=== PATIENT | female | born 1980 | race Caucasian/White ===

== ENCOUNTER → 2019-01-28 | Outpatient (CLI) | payer BC ==
[~2019-01-28] MED LIST: ALBU90I INH; ALBU90OI INH; BIRTH CONTROL PILL; CALCAVITDA PO; CEPH500 PO; CITA20; CLIN300 PO; CYCL10 PO; DESOGESTREL; DIVA500EC PO; DOC250 PO; ESTR2 PO; ESTROGEN PATCH; ETHINYL ESTRADIOL; FISH1000 PO; HYDACE5 PO; Hair, Skin & N1 EACH PO; LEVFLO500 PO; LIDO2TG30 TOP; LORA1 PO; MULTIVITAMIN; MULVITMIND PO; MULVITMINE; MULVITMINE PO; NITR100CA PO; ORTHOCYCLINE; OXYACE5T PO; PHENA100 PO; PRED20 PO; PROBIOTIC; PSEU120ER PO; Percocet 5-3251 EACH PO; RANI150; RXPHEN200 PO; SERT100; SERT100 PO; SERT50; SERT50 PO; SULTRIDS PO; Zofran8 MG PO; [UNRECOGNIZED DRUG - OTHER]
[2019-01-29 07:02] LABS: Candida species (DNA Probe) Negative (NEGATIVE); G. vaginalis (DNA Probe) Negative (NEGATIVE); T. vaginalis (DNA Probe) Negative (NEGATIVE)
== END | disposition home or self-care (01) ==
LOC: LAB 10:40 → LAB SHORT 10:40
PROVIDERS: Nurse Practitioner Obstetrics & Gynecology
DX: N76.0 Acute vaginitis (principal)
CPT/HCPCS: 87480; 87510; 87660

== ENCOUNTER 2020-08-14 10:01 | Day surgery (SDC) | payer OTHER ==
[~2020-08-14] VITALS: Ht 170.2 cm; Wt 96.7 kg
[~2020-08-14 10:01] MED LIST changes: +FLUT.05NI; +IBUP800 PO; +Methylin ER10 MG PO; +Norco 5-325 Ta1 EACH PO; +PROGESTERONE100 MG PO
[2020-08-14] MEDS ORDERED: FOLIC-K CAPSUL1 EACH (10:24)
--- NOTE | 2020-08-14 10:36 | NUR ---
08/14/20 Mikaela6 Joana Salinas 1 TRY RIGHT HAND BLEW
== END 2020-08-14 11:50 | disposition home or self-care (01) ==
LOC: ORSCSDS 10:01
PROVIDERS: Internal Medicine Gastroenterology
PROC: 0DB98ZX Excision of Duodenum, Via Natural or Artificial Opening Endoscopic, Diagnostic (ICD-10-PCS; principal; 2020-08-14 11:30)
PROC: 0DB68ZX Excision of Stomach, Via Natural or Artificial Opening Endoscopic, Diagnostic (ICD-10-PCS; principal; 2020-08-14 11:30)
DX: R10.11 Right upper quadrant pain (principal); K29.50 Unspecified chronic gastritis without bleeding; K29.80 Duodenitis without bleeding; J45.909 Unspecified asthma, uncomplicated
CPT/HCPCS: 88305; 88342; J2704; J7120

== ENCOUNTER → 2020-11-05 | Outpatient (CLI) | payer OTHER ==
[~2020-11-05] MED LIST changes: +CEFP200 PO; +CITA20 PO; +FOLIC-K CAPSUL1 EACH; +IBU800 MG PO; +Norco 7.5-3251 EACH PO; +ONDA4ODT MM; +SPIR50 PO
[2020-11-06 09:01] LABS: Candida species (DNA Probe) Negative (NEGATIVE); G. vaginalis (DNA Probe) Negative (NEGATIVE); T. vaginalis (DNA Probe) Negative (NEGATIVE)
[2020-11-07 01:11] LABS: HBSAG SCREEN Negative (Negative); HEP B CORE AB, TOT Negative (Negative); HEP C VIRUS AB 0.2 (0.0-0.9)
[2020-11-12 14:10] LABS: PANEL 138901 Negative (Negative)
== END | disposition home or self-care (01) ==
LOC: LAB SHORT 15:12 → PLD 15:12
PROVIDERS: Physician Assistant
DX: Z11.3 Encounter for screening for infections with a predominantly sexual mode of transmission (principal); N76.0 Acute vaginitis
CPT/HCPCS: 86702; 86704; 86708; 86803; 87070; 87205; 87340; 87480; 87510; 87660

== ENCOUNTER → 2020-11-06 | Outpatient (CLI) | payer OTHER ==
[2020-11-08 12:08] LABS: CHLAMYDIA TRACHOMATIS, NAA Negative (Negative)
== END | disposition home or self-care (01) ==
LOC: LAB SHORT 09:50 → LAB EV 09:50
PROVIDERS: Physician Assistant
DX: Z11.3 Encounter for screening for infections with a predominantly sexual mode of transmission (principal)
CPT/HCPCS: 87491; 87591

== ENCOUNTER 2021-02-17 10:28 | Emergency (ER) | payer OTHER ==
[~2021-02-17] VITALS: Ht 170.2 cm; Wt 86.2 kg
[~2021-02-17 10:28] MED LIST changes: -CEFP200 PO; -CITA20 PO; -IBU800 MG PO; -Norco 7.5-3251 EACH PO; -ONDA4ODT MM; -SPIR50 PO
[2021-02-17] MEDS ORDERED: CITA20 PO (11:00)
[2021-02-17] MEDS ORDERED: SPIR50 PO (11:01)
[2021-02-17] MEDS ORDERED: Norco 7.5-3251 EACH PO (11:39)
== END 2021-02-17 12:07 | disposition home or self-care (01) ==
LOC: ER 10:28
DX: M25.462 Effusion, left knee (principal); J45.909 Unspecified asthma, uncomplicated; Z87.442 Personal history of urinary calculi; Z88.2 Allergy status to sulfonamides; Z79.899 Other long term (current) drug therapy
CPT/HCPCS: 29505; 73562-LT; 99283-25

== ENCOUNTER 2021-03-23 16:10 | Emergency (ER) | payer OTHER ==
[~2021-03-23] VITALS: Ht 170.2 cm; Wt 89.4 kg
[~2021-03-23 16:10] MED LIST changes: +CITA20 PO; +Norco 7.5-3251 EACH PO; +SPIR50 PO
[2021-03-23 16:58] LABS: BASOPHILS ABSOLUTE AUTO 0.01 K/mm3 (0.00-0.23); BASOPHILS PERCENT AUTO 0 % (0-2); EOSINOPHILS ABSOLUTE AUTO 0.03 K/mm3 (0.00-0.68); EOSINOPHILS PERCENT AUTO 0 % (0-6); Hematocrit 41.2 % (33.0-51.0); IMMATURE GRAN ABSOLUTE AUTO 0.03 K/mm3 (0.00-0.10); IMMATURE GRAN PERCENT AUTO 0 % (0-1); LYMPHOCYTES ABSOLUTE AUTO 1.55 K/mm3 (0.84-5.20); LYMPHOCYTES PERCENT AUTO 19 % (21-46); MONOCYTES ABSOLUTE AUTO 0.43 K/mm3 (0.16-1.47); MONOCYTES PERCENT AUTO 5 % (4-13); Mean Corpuscular HGB 31.5 pg (26.0-34.0); Mean Corpuscular Volume 93 fL (80-100); Mean Platelet Volume 10.9 fL (9.1-12.4); NEUTROPHILS ABSOLUTE AUTO 5.99 K/mm3 (1.96-9.15); NEUTROPHILS PERCENT AUTO 75 % (41-73); Platelet Count 193 K/mm3 (150-400); RDW Coefficient Variation 12.1 % (11.7-14.2); RDW Standard Deviation 41.5 fL (35.1-46.3); Red Blood Cell Count 4.45 M/mm3 (3.80-5.20); White Blood Cell Count 8.04 K/mm3 (4.00-11.30)
[2021-03-23 17:16] LABS: Alanine Aminotransfer (ALT/SGP 18 U/L (12-78); Alk Phos 110 U/L (50-136); Anion Gap 5 mmol/L (6-16); Aspartate Aminotrans (AST/SGOT 11 U/L (12-37); Bilirubin, Total 0.4 mg/dL (0.1-1.0); Blood Urea Nitrogen 13 mg/dL (8-24); Bun/Creatinine Ratio 17.2 (12.0-20.0); CO2, Blood 26 mmol/L (21-32); Calcium, Blood 9.2 mg/dL (8.5-10.1); Chloride, Blood 109 mmol/L (98-108); Creatinine, Blood 0.76 mg/dL (0.40-1.00); Globulin, Blood 4.2 g/dL (2.2-4.0); Glomerular Filtration Rate >60 (60-); Glucose, Blood 90 mg/dL (70-99); Potassium, Blood 3.8 mmol/L (3.5-5.5); Sodium, Blood 140 mmol/L (136-145); Total Protein, Blood 8.2 g/dL (6.4-8.2)
[2021-03-23 19:33] LABS: Source, Urine Clean Catch
[2021-03-23 19:37] LABS: Appearance, Urine Clear (Clear); Blood, Urine 3+ (Neg); Glucose Qualitative, Urine Neg (Neg); Ketones, Urine Neg (Neg); Leukocyte Esterase, Urine Neg (Neg); Nitrite, Urine Pos (Neg); Protein, Urine 2+ (Neg); Specific Gravity, Urine 1.025 (1.003-1.022); Urobilinogen, Urine 2+ (Normal)
[2021-03-23 19:50] LABS: Bilirubin, Urine 3+ (Neg); Color, Urine Orange (P-Yellow)
[2021-03-23 19:52] LABS: Bacteria Mod /hpf; Squamous Epithelial Cells Mod /hpf (Few)
[2021-03-23] MEDS ORDERED: IBU800 MG PO (20:16)
[2021-03-23] MEDS ORDERED: ONDA4ODT MM (20:16)
[2021-03-23] MEDS ORDERED: CEFP200 PO (20:16)
== END 2021-03-23 20:47 | disposition home or self-care (01) ==
LOC: ER 16:10
PROVIDERS: Physician Assistant
DX: N12 Tubulo-interstitial nephritis, not specified as acute or chronic (principal)
CPT/HCPCS: 36415; 74176; 80053; 81001; 83690; 85025; 87077; 87086; 87186; 96365; 96375; 99284-25; J0696; J1885; J2405; J7030

== ENCOUNTER 2021-06-08 23:37 | Emergency (ER) | payer OTHER ==
[~2021-06-08] VITALS: Ht 170.2 cm; Wt 90.7 kg
[~2021-06-08 23:37] MED LIST changes: +CEFP200 PO; +IBU800 MG PO; +ONDA4ODT MM
== END 2021-06-09 03:30 | disposition home or self-care (01) ==
LOC: ER 23:37
DX: U07.1 COVID-19 (principal); J45.909 Unspecified asthma, uncomplicated; Z88.2 Allergy status to sulfonamides; Z79.899 Other long term (current) drug therapy; Z87.442 Personal history of urinary calculi
CPT/HCPCS: 36415; 96361; 96374; 99284-25; J1885; J7030

== ENCOUNTER 2022-04-24 23:01 | Emergency (ER) | payer OTHER ==
[~2022-04-24] VITALS: Ht 170.2 cm; Wt 99.8 kg
== END 2022-04-25 01:31 | disposition home or self-care (01) ==
LOC: ER 23:01
DX: S93.401A Sprain of unspecified ligament of right ankle, initial encounter (principal); J45.909 Unspecified asthma, uncomplicated; V48.4XXA Person boarding or alighting a car injured in noncollision transport accident, initial encounter; Z79.899 Other long term (current) drug therapy
CPT/HCPCS: 73610; A9270

== ENCOUNTER 2022-07-24 02:14 | Emergency (ER) | payer OTHER ==
[~2022-07-24] VITALS: Ht 170.2 cm; Wt 95.2 kg
== END 2022-07-24 05:33 | disposition home or self-care (01) ==
LOC: ER 02:14
DX: S40.012A Contusion of left shoulder, initial encounter (principal); S50.02XA Contusion of left elbow, initial encounter; S00.83XA Contusion of other part of head, initial encounter; S16.1XXA Strain of muscle, fascia and tendon at neck level, initial encounter; Y04.2XXA Assault by strike against or bumped into by another person, initial encounter; J45.909 Unspecified asthma, uncomplicated; Z88.2 Allergy status to sulfonamides; Z79.899 Other long term (current) drug therapy
CPT/HCPCS: 73030; 73070; J1885

== ENCOUNTER 2023-05-19 23:19 | Emergency (ER) | payer OTHER ==
[~2023-05-19] VITALS: Ht 170.2 cm; Wt 95.2 kg
[~2023-05-19 23:19] MED LIST changes: +ALDACTONE100 MG PO; +CLIMARA1 EACH TOP; +METPHE10 PO; +PROG100
[2023-05-19 23:48] LABS: BASOPHILS ABSOLUTE AUTO 0.02 K/mm3 (0.00-0.23); BASOPHILS PERCENT AUTO 0 % (0-2); EOSINOPHILS ABSOLUTE AUTO 0.08 K/mm3 (0.00-0.68); EOSINOPHILS PERCENT AUTO 1 % (0-6); Hematocrit 37.5 % (33.0-51.0); Hemoglobin 12.8 g/dL (11.5-16.0); IMMATURE GRAN ABSOLUTE AUTO 0.01 K/mm3 (0.00-0.10); IMMATURE GRAN PERCENT AUTO 0 % (0-1); LYMPHOCYTES ABSOLUTE AUTO 1.86 K/mm3 (0.84-5.20); LYMPHOCYTES PERCENT AUTO 26 % (21-46); MONOCYTES ABSOLUTE AUTO 0.52 K/mm3 (0.16-1.47); MONOCYTES PERCENT AUTO 7 % (4-13); Mean Corpuscular HGB 31.7 pg (26.0-34.0); Mean Corpuscular HGB Conc 34.1 g/dL (31.5-36.5); Mean Corpuscular Volume 93 fL (80-100); Mean Platelet Volume 11.3 fL (9.1-12.4); NEUTROPHILS ABSOLUTE AUTO 4.69 K/mm3 (1.96-9.15); NEUTROPHILS PERCENT AUTO 65 % (41-73); Platelet Count 187 K/mm3 (150-400); RDW Coefficient Variation 12.5 % (11.7-14.2); Red Blood Cell Count 4.04 M/mm3 (3.80-5.20); White Blood Cell Count 7.18 K/mm3 (4.00-11.30)
[2023-05-20 00:08] LABS: Albumin/Globulin Ratio 1.2 (0.8-1.8); Bilirubin, Total 0.2 mg/dL (0.1-1.0); Bun/Creatinine Ratio 13.5 (12.0-20.0); Calcium, Blood 9.4 mg/dL (8.5-10.1); Creatinine, Blood 0.89 mg/dL (0.40-1.00); Globulin, Blood 3.4 g/dL (2.2-4.0); Potassium, Blood 3.9 mmol/L (3.5-5.5); Total Protein, Blood 7.4 g/dL (6.4-8.2)
[2023-05-20 01:56] LABS: Source, Urine Clean Catch
[2023-05-20 02:07] LABS: Bilirubin, Urine Neg (Neg); Blood, Urine 1+ (Neg); Glucose Qualitative, Urine Neg (Neg); Ketones, Urine Neg (Neg); Leukocyte Esterase, Urine Neg (Neg); Nitrite, Urine Neg (Neg); Protein, Urine Neg (Neg); Specific Gravity, Urine 1.025 (1.003-1.022); Urobilinogen, Urine NORM (Normal)
[2023-05-20 02:08] LABS: Appearance, Urine Hazy (Clear); Color, Urine Yellow (P-Yellow)
[2023-05-20 02:13] LABS: Red Blood Cells, Urine 0-2 /hpf (0-2); White Blood Cells, Urine 0-2 /hpf (0-5)
[2023-05-20 02:14] LABS: Amorphous Heavy (0-Heavy); Bacteria Mod /hpf; Calcium Oxalate Crystals Few /hpf; Squamous Epithelial Cells Mod /hpf (Few)
[2023-05-20] MEDS ORDERED: FLUC200 PO (02:34)
[2023-05-20] MEDS ORDERED: METR500 PO (02:34)
[2023-05-20] MEDS ORDERED: ONDA4ODT MM (02:34)
[2023-05-20 02:57] VITALS: BP 116/62
== END 2023-05-20 02:57 | disposition home or self-care (01) ==
LOC: ER 23:19
PROVIDERS: Student in an Organized Health Care Education/Training Program
DX: N76.0 Acute vaginitis (principal); Z88.2 Allergy status to sulfonamides; Z79.899 Other long term (current) drug therapy; J45.909 Unspecified asthma, uncomplicated
CPT/HCPCS: 36415; 51798; 74177; 80053; 81001; 83690; 85025; 87086; 96361; 96374; 96375; 99284-25; J1885; J2405; J7030; Q9967

== ENCOUNTER 2023-06-04 22:22 | Emergency (ER) | payer OTHER ==
[~2023-06-04] VITALS: Ht 170.2 cm; Wt 93.0 kg
[~2023-06-04 22:22] MED LIST changes: +FLUC200 PO; +METR500 PO
[2023-06-04 22:33] VITALS: BP 130/90
[2023-06-04 22:51] LABS: Source, Urine Clean Catch
[2023-06-04 23:01] LABS: Bilirubin, Urine Neg (Neg); Blood, Urine 5+ (Neg); Glucose Qualitative, Urine Neg (Neg); Ketones, Urine 1+ (Neg); Leukocyte Esterase, Urine 3+ (Neg); Nitrite, Urine Pos (Neg); Protein, Urine 3+ (Neg); Urobilinogen, Urine NORM (Normal)
[2023-06-04 23:04] LABS: Appearance, Urine Hazy (Clear); Color, Urine Yellow (P-Yellow)
[2023-06-04 23:06] LABS: Bacteria Mod /hpf; Red Blood Cells, Urine TNTC /hpf (0-2); Squamous Epithelial Cells Few /hpf (Few); White Blood Cells, Urine 25-50 /hpf (0-5)
[2023-06-04 23:07] LABS: Transitional Epithelial Cells Few /hpf (0-Rare)
[2023-06-05] MEDS ORDERED: Pyridium200 MG PO (00:21)
[2023-06-05] MEDS ORDERED: Keflex500 MG PO (00:21)
[2023-06-05] MEDS ORDERED: Diflucan150 MG PO (00:43)
== END 2023-06-05 00:50 | disposition home or self-care (01) ==
LOC: ER 22:22
PROVIDERS: Physician Assistant
DX: N39.0 Urinary tract infection, site not specified (principal); Z88.2 Allergy status to sulfonamides; Z79.899 Other long term (current) drug therapy; J45.909 Unspecified asthma, uncomplicated
CPT/HCPCS: 81001; 87077; 87086; 87186; 96374; 99283-25; A9270; J1885

== ENCOUNTER 2023-08-14 22:16 | Emergency (ER) | payer OTHER ==
[~2023-08-14] VITALS: Ht 170.2 cm; Wt 90.7 kg
[~2023-08-14 22:16] MED LIST changes: +Diflucan150 MG PO; +Keflex500 MG PO; +Pyridium200 MG PO
[2023-08-14 22:23] VITALS: BP 131/99
[2023-08-14 22:58] LABS: Source, Urine Clean Catch
[2023-08-14 23:12] LABS: Bilirubin, Urine Neg (Neg); Blood, Urine 1+ (Neg); Glucose Qualitative, Urine Neg (Neg); Ketones, Urine Neg (Neg); Leukocyte Esterase, Urine 1+ (Neg); Nitrite, Urine Neg (Neg); Protein, Urine 1+ (Neg); Urobilinogen, Urine NORM (Normal)
[2023-08-14 23:36] LABS: Appearance, Urine Hazy (Clear); Color, Urine Yellow (P-Yellow)
[2023-08-14 23:37] LABS: Bacteria Many /hpf; Red Blood Cells, Urine 0-2 /hpf (0-2); Squamous Epithelial Cells Mod /hpf (Few)
[2023-08-14] MEDS ORDERED: CEPH500 PO (23:47)
[2023-08-14] MEDS ORDERED: Diflucan100 MG PO (23:50)
== END 2023-08-14 23:58 | disposition home or self-care (01) ==
LOC: ER 22:16
PROVIDERS: Physician Assistant
DX: N39.0 Urinary tract infection, site not specified (principal); J45.909 Unspecified asthma, uncomplicated; Z88.2 Allergy status to sulfonamides; Z79.890 Hormone replacement therapy; Z79.899 Other long term (current) drug therapy
CPT/HCPCS: 81001; 87086; 99283; A9270

== ENCOUNTER → 2024-09-22 | Outpatient (CLI) | payer OTHER ==
[~2024-09-22] MED LIST changes: +BENZ100A PO; +Diflucan100 MG PO
[2024-09-22 17:00] LABS: BASOPHILS ABSOLUTE AUTO 0.01 K/mm3 (0.00-0.23); BASOPHILS PERCENT AUTO 0 % (0-2); EOSINOPHILS ABSOLUTE AUTO 0.01 K/mm3 (0.00-0.68); EOSINOPHILS PERCENT AUTO 0 % (0-6); Hematocrit 39.4 % (33.0-51.0); Hemoglobin 13.1 g/dL (11.5-16.0); IMMATURE GRAN ABSOLUTE AUTO 0.01 K/mm3 (0.00-0.10); IMMATURE GRAN PERCENT AUTO 0 % (0-1); LYMPHOCYTES ABSOLUTE AUTO 2.01 K/mm3 (0.84-5.20); LYMPHOCYTES PERCENT AUTO 36 % (21-46); MONOCYTES ABSOLUTE AUTO 0.32 K/mm3 (0.16-1.47); MONOCYTES PERCENT AUTO 6 % (4-13); Mean Corpuscular HGB 31.5 pg (26.0-34.0); Mean Corpuscular HGB Conc 33.2 g/dL (31.5-36.5); Mean Corpuscular Volume 95 fL (80-100); NEUTROPHILS ABSOLUTE AUTO 3.21 K/mm3 (1.96-9.15); NEUTROPHILS PERCENT AUTO 58 % (41-73); Platelet Count 191 K/mm3 (150-400); RDW Coefficient Variation 13.1 % (11.7-14.2); RDW Standard Deviation 45.1 fL (35.1-46.3); Red Blood Cell Count 4.16 M/mm3 (3.80-5.20); White Blood Cell Count 5.57 K/mm3 (4.00-11.30)
[2024-09-22 17:26] LABS: Albumin, Blood 4.3 g/dL (3.4-5.0); Albumin/Globulin Ratio 1.1 (0.8-1.8); Bilirubin, Total 0.7 mg/dL (0.1-1.0); Bun/Creatinine Ratio 13.7 (12.0-20.0); Calcium, Blood 9.1 mg/dL (8.5-10.1); Creatinine, Blood 1.02 mg/dL (0.40-1.00); Globulin, Blood 3.9 g/dL (2.2-4.0); Magnesium, Blood 2.1 mg/dL (1.6-2.4); Potassium, Blood 3.9 mmol/L (3.5-5.5); Thyroid Stimulating Hormone 1.171 uIU/mL (0.360-4.800); Total Protein, Blood 8.2 g/dL (6.4-8.2)
== END ==
LOC: LAB SHORT 16:57 → LAB 16:57
PROVIDERS: Family Medicine
DX: R55 Syncope and collapse (principal); R00.2 Palpitations; R53.83 Other fatigue
CPT/HCPCS: 80053; 83735; 84443; 84484; 85025